=== PATIENT | male | born 1990 | race Caucasian/White ===

== ENCOUNTER 2021-11-03 13:28 | Emergency (ER) | payer OTHER, MEDICAID, SELFPAY ==
[2021-11-03 13:32] VITALS: BP 140/72; PULSE 54; RESP 16; TEMP 36.4; O2SAT 98; BMI 29.2
--- NOTE | 2021-11-03 13:40 | DI.RAD.S_ITS ---
PROCEDURE: XR CHEST 1V INDICATIONS: chest pain TECHNIQUE: One view of the chest was acquired. COMPARISON: None. FINDINGS: Surgical changes and devices: None. Lungs and pleura: Lungs are clear. No pleural effusions or pneumothorax. Mediastinum: Mediastinal contours appear normal. Heart size is normal. Bones and chest wall: No suspicious bony lesions. Overlying soft tissues appear unremarkable. IMPRESSION: No acute process. Dictated by: Saritha Theodore M.D. on 11/03/2021 at 14:27 Approved by: Saritha Theodore M.D. on 11/03/2021 at 14:27
[2021-11-03 14:09] LABS: Add Manual Diff / Slide Review NO; Basophils Absolute Auto 0 /uL (0-100); Basophils Percent Auto 0.3 % (0-2); Eosinophils Absolute Auto 0 /uL (0-450); Eosinophils Percent Auto 0.8 % (2-4); Hemoglobin 16.2 g/dL (13.5-17.5); Lymphocytes Absolute Auto 1700 /uL (1100-4500); Lymphocytes Percent Auto 35.8 % (25-40); Mean Corpuscular HGB Conc 35.2 % (30-36); Mean Corpuscular Hemoglobin 30.9 PG (26-34); Mean Corpuscular Volume 87.7 fL (80-100); Monocytes Absolute Auto 300 /uL (0-900); Monocytes Percent Auto 7.4 % (3-14); Neutrophils Absolute Auto 2600 /uL (1500-7000); Neutrophils Percent Auto 55.7 % (50-75); Platelet Count 208 X10^3/uL (150-400); Red Blood Cell Count 5.25 X10^6/uL (4.5-5.9); Red Cell Distribution Width 12.4 % (11.6-14.8); White Blood Cell Count 4.7 X10^3/uL (4.5-11.0)
[2021-11-03 14:17] LABS: Alanine Aminotransferase 30 IU/L (<50); Albumin 4.3 g/dL (3.5-5.0); Albumin Globulin Ratio 1.5 (1.0-2.8); Alkaline Phosphatase 44 U/L (38-126); Aspartate Aminotransferase 25 IU/L (17-59); BUN Creatinine Ratio 12.4 (6-22); Bilirubin Total 0.7 mg/dL (0.2-1.3); Blood Urea Nitrogen 11 mg/dL (9-20); Calcium 9.7 mg/dL (8.4-10.2); Carbon Dioxide 31 mmol/L (22-32); Chloride 102 mmol/L (98-107); Creatine Kinase 39 U/L (55-170); Estimated Glomerular Filt Rate > 60.0 mL/min (>60); Globulin 2.9 g/dL (1.7-4.1); Glucose 97 mg/dL (70-100); HEMOLYSIS < 15 (0-50); Lipase 139 U/L (23-300); Potassium 4.1 mmol/L (3.4-5.1); Sodium 138 mmol/L (137-145); Total Protein 7.2 g/dL (6.3-8.2)
[2021-11-03 14:29] LABS: Troponin I < 0.012 ng/mL (0.01-0.034)
[2021-11-03 16:36] VITALS: PULSE 48; RESP 16; O2SAT 99
[2021-11-03 17:00] VITALS: BP 116/69; PULSE 51; RESP 13; O2SAT 99
--- NOTE | 2021-11-03 17:21 | ED_ITS ---
HPI - Chest Pain General Chief Complaint: Chest Pain Stated Complaint: Chest tightness 24 hrs Time Seen by Provider: 11/03/21 16:57 Source: patient Mode of arrival: Ambulatory Limitations: no limitations History of Present Illness HPI narrative: This is a 31-year-old male comes emergency department with complaint of chest tightness for 24 hours. Patient states it started after having some drinks and spicy food last night and has been persistent. Nothing seems to exacerbate or alleviate it. Patient denies radiation. Sort of just to the left to the sternum. He has had similar symptoms 1 time in the past. He thought it was heartburn he tried Tums and Advil earlier today without any resolution. He has had no fevers or chills. No cold cough or congestion. No shortness of breath. No lightheadedness or passing out. No nausea or vomiting. No swelling of extremities. No cramping. No diarrhea constipation. He denies any medical issues. He had his ACL repaired 11 years ago. Dad had a blood 5 or 6 years ago he states they never found a cause he still on anticoagulants. His mom has extra heartbeats and his maternal grandfather had [place]. No tobacco. Occasional ETOH. No illicit. He does drive regularly but typically no longer than 2 hours. Related Data Home Medications Medication Instructions Recorded Confirmed No Known Home Medications 11/03/21 11/03/21 Allergies Allergy/AdvReac Type Severity Reaction Status Date / Time No Known Drug Allergies Allergy Verified 11/03/21 17:22 Review of Systems Review of Systems ROS Unobtainable: All systems reviewed & are unremarkable except as noted in HPI and below Patient History Social History Smoking Status: Never smoker Smoking Status: Never smoker alcohol intake frequency: 0-2 drinks per day Substance Use Type: marijuana Exam Narrative Exam Narrative: GENERAL: Alert and oriented x three, male in mild distress. HEENT: Head normocephalic, atraumatic, EOMI, pupils reactive, face symmetric, moist mucous membranes NECK: Supple, full range of motion CARDIOVASCULAR: Regular rate and rhythm without murmurs, rubs or gallops. RESPIRATORY: Breath sounds equal bilaterally, no wheezes rales or rhonchi. ABDOMEN: Soft, nontender. Normoactive bowel sounds all 4 quadrants. No guarding or rebound, rigidity, no mass : No CVA tenderness EXTREMITIES: Normal range of motion, no clubbing or edema. Neurovascularly intact NEUROLOGICAL: Cranial nerves II through XII grossly intact. Moving all extremities SKIN: Warm, dry, no petechiae, no rashes or lesions. Initial Vital Signs Initial Vital Signs: Vital Signs Temperature 97.6 F 11/03/21 13:32 Pulse Rate 54 L 11/03/21 13:32 Respiratory Rate 16 11/03/21 13:32 Blood Pressure 140/72 11/03/21 13:32 Pulse Oximetry 98 11/03/21 13:32 Scores HEART Score Heart Score history: Slightly Suspicious Heart Score EKG: Normal Heart Score Age: < 45 years old Heart Score risk factors: No known risk factors Heart Score troponin: < or = to normal limit Heart Score Total: 0 Course Orders Ordered: ED Orders 11/03/21 13:40 XR chest 1V Stat EKG-12 Lead Stat 11/03/21 13:55 Complete Blood Count AUTO DIFF Stat Comprehensive Metabolic Panel Stat D Dimer Stat Lipase Stat Troponin & CK Cardiac Panel Stat 11/03/21 17:18 COVID19 -Nasal swab/Pre-Proc Stat Discontinued Medications Al Hydrox/Mg Hydrox/Simethicone 20 ml/ Lidocaine HCl 15 ml 0 ml PO NOW ONE Stop: 11/03/21 17:57 Last Admin: 11/03/21 18:30 Dose: 35 ml Documented by: Pantoprazole Sodium (Pantoprazole 40 Mg Vial) 40 mg IV NOW ONE Stop: 11/03/21 17:52 Last Admin: 11/03/21 18:29 Dose: Not Given Documented by: Vital Signs Vital signs: Vital Signs - 8 hr 11/03/21 13:32 11/03/21 16:36 11/03/21 17:00 Temperature 97.6 F Pulse Rate 54 L 48 L 51 L Respiratory Rate 16 16 13 Blood Pressure 140/72 116/69 Pulse Oximetry 98 99 99 11/03/21 17:30 Temperature Pulse Rate 53 L Respiratory Rate 15 Blood Pressure 111/74 Pulse Oximetry 96 MDM - Chest Pain Lab Data Result diagrams: 11/03/21 13:55 11/03/21 13:55 Labs: Lab Results 11/03/21 11/03/21 11/03/21 Range/Units 13:55 13:55 13:55 WBC 4.7 (4.5-11.0) X10^3/uL RBC 5.25 (4.5-5.9) X10^6/uL Hgb 16.2 (13.5-17.5) g/dL Hct 46.0 (41-53) % MCV 87.7 (80-100) fL MCH 30.9 (26-34) PG MCHC 35.2 (30-36) % RDW 12.4 (11.6-14.8) % Plt Count 208 (150-400) X10^3/uL Neut % (Auto) 55.7 (50-75) % Lymph % (Auto) 35.8 (25-40) % Alpine % (Auto) 7.4 (3-14) % Eos % (Auto) 0.8 L (2-4) % Baso % (Auto) 0.3 (0-2) % Neut # (Auto) 2600 (1472-6201) /uL Lymph # (Auto) 1700 (6982-1279) /uL Alpine # (Auto) 300 (0-900) /uL Eos # (Auto) 0 (0-450) /uL Baso # (Auto) 0 (0-100) /uL D-Dimer < 200 (<230) ng/mL Sodium 138 (137-145) mmol/L Potassium 4.1 (3.4-5.1) mmol/L Chloride 102 (98-107) mmol/L Carbon Dioxide 31 (22-32) mmol/L BUN 11 (9-20) mg/dL Creatinine 0.89 (0.66-1.25) mg/dL Estimated GFR > 60.0 (>60) mL/min BUN/Creatinine Ratio 12.4 (6-22) Glucose 97 (70-100) mg/dL Calcium 9.7 (8.4-10.2) mg/dL Total Bilirubin 0.7 (0.2-1.3) mg/dL AST 25 (17-59) IU/L ALT 30 (<50) IU/L Alkaline Phosphatase 44 (38-126) U/L Total Creatine Kinase 39 L (55-170) U/L CK-MB (CK-2) TNP CK-MB (CK-2) Rel Index TNP Troponin I < 0.012 (0.01-0.034) ng/mL Total Protein 7.2 (6.3-8.2) g/dL Albumin 4.3 (3.5-5.0) g/dL Globulin 2.9 (1.7-4.1) g/dL Albumin/Globulin Ratio 1.5 (1.0-2.8) Lipase 139 (23-300) U/L SARS-CoV-2 (PCR) (Negative) 11/03/21 Range/Units 17:18 WBC (4.5-11.0) X10^3/uL RBC (4.5-5.9) X10^6/uL Hgb (13.5-17.5) g/dL Hct (41-53) % MCV (80-100) fL MCH (26-34) PG MCHC (30-36) % RDW (11.6-14.8) % Plt Count (150-400) X10^3/uL Neut % (Auto) (50-75) % Lymph % (Auto) (25-40) % Alpine % (Auto) (3-14) % Eos % (Auto) (2-4) % Baso % (Auto) (0-2) % Neut # (Auto) (1983-1283) /uL Lymph # (Auto) (5280-1942) /uL Alpine # (Auto) (0-900) /uL Eos # (Auto) (0-450) /uL Baso # (Auto) (0-100) /uL D-Dimer (<230) ng/mL Sodium (137-145) mmol/L Potassium (3.4-5.1) mmol/L Chloride (98-107) mmol/L Carbon Dioxide (22-32) mmol/L BUN (9-20) mg/dL Creatinine (0.66-1.25) mg/dL Estimated GFR (>60) mL/min BUN/Creatinine Ratio (6-22) Glucose (70-100) mg/dL Calcium (8.4-10.2) mg/dL Total Bilirubin (0.2-1.3) mg/dL AST (17-59) IU/L ALT (<50) IU/L Alkaline Phosphatase (38-126) U/L Total Creatine Kinase (55-170) U/L CK-MB (CK-2) CK-MB (CK-2) Rel Index Troponin I (0.01-0.034) ng/mL Total Protein (6.3-8.2) g/dL Albumin (3.5-5.0) g/dL Globulin (1.7-4.1) g/dL Albumin/Globulin Ratio (1.0-2.8) Lipase (23-300) U/L SARS-CoV-2 (PCR) Negative (Negative) Imaging Data Chest x-ray: Radiologist's Impression: [address] [address] XRay Report Signed Patient: Haresh Park MR#: [id number] : 1990 Acct:[id number] Age/Sex: 31 / M Date of Service: 11/03/21 Loc: ED Accession Number: [id number] ?? Procedure: XR chest 1V Ordering Provider: Marisol Champion D.O. PROCEDURE:? XR CHEST 1V ? INDICATIONS:? chest pain ? TECHNIQUE:? One view of the chest was acquired.? ? COMPARISON:? None. ? FINDINGS:? ? Surgical changes and devices:? None.? ? Lungs and pleura:? Lungs are clear.? No pleural effusions or pneumothorax.? ? Mediastinum:? Mediastinal contours appear normal.? Heart size is normal.? ? Bones and chest wall:? No suspicious bony lesions.? Overlying soft tissues appear unremarkable.? ? IMPRESSION:? No acute process. ? ? Dictated by: Saritha Theodore M.D. on 11/03/2021 at 14:27 ? ? Approved by: Saritha Theodore M.D. on 11/03/2021 at 14:27? ECG Data Attestation: I personally reviewed and interpreted this ECG as follows: Prior ECG tracings: not available for review Interpretation: Sinus bradycardia rate of 58 DC 136 QRS of 114 and QTC 380. No acute ST changes appreciated. MDM Narrative Medical decision making narrative: This is a 31-year-old male comes to emergency department with complaint of chest tightness for 24 hours no exacerbating alleviating factors other than he had some spicy food just before. He tried Tums without improvement. He does the family history significant for blood clot in his father with no known cause. Patient has not had blood clots. His EKG shows sinus bradycardia, his labs are otherwise reassuring but after discussion D-dimer was added on if elevated plan for PE study. COVID swab was obtained. If normal plan for DC home. Discharge Plan Departure Patient Disposition: Home Clinical Impression: Atypical chest pain Instructions: DI for Atypical Chest Pain Activity Restrictions/Additional Instructions: Follow-up with your physician for recheck. Your labs, imaging and EKG today are reassuring. Please return for new or worsening chest pain, lightheadedness or passing out, shortness of breath, persistent vomiting, swelling in her extremities or other new or concerning changes. Prescriptions: No Action No Known Home Medications 0RF Referrals: Miscellaneous,Doctor, MD [Primary Care Provider] -
[2021-11-03 17:30] VITALS: BP 111/74; PULSE 53; RESP 15; O2SAT 96
[2021-11-03 18:08] LABS: COVID19 -Nasal RAPID Negative (Negative)
[2021-11-03 18:13] LABS: D Dimer < 200 ng/mL (<230)
[2021-11-03] MEDS: MAG HYDROX/ALUMINUM/SIMETH SUS 20 ML, LIDOCAINE VISCOUS 2% 15 ML PO (18:30)
[2021-11-03 18:46] VITALS: BP 128/78; PULSE 50; RESP 16
== END 2021-11-03 18:47 | disposition home or self-care (01) ==
PROVIDERS: Emergency Provider Emergency Medicine
DX: R07.89 Other chest pain (principal); Z20.822 Contact with and (suspected) exposure to COVID-19
CPT/HCPCS: 36415; 71045; 80053; 82550; 83690; 84484; 85025; 85379; 87635; 93005; 93010; 99284; C9803